=== PATIENT | female | born 1985 | race Caucasian/White ===

== ENCOUNTER 2016-12-18 12:30 | Emergency (ER) | payer OTHER ==
[2016-12-18] MEDS ORDERED: SODIUM CHLORIDE 0.9% 2,000 ML IV STA (12:32)
[2016-12-18] MEDS ORDERED: METOCLOPRAMIDE 5 MG/ML 2 ML VIAL IVP STA (12:32)
[2016-12-18] MEDS ORDERED: ACETAMINOPHEN IV (For NPO) 1,000 MG in EMPTY BAG 1 BAG IVPB STA (12:40)
--- NOTE | 2016-12-18 12:52 | ED ---
General Adult HPI - General Chief complaint: Abdominal Pain Stated complaint: Poss Flu Time Seen by Provider: 12/18/16 12:31 Source: patient, RN notes reviewed Mode of arrival: wheelchair Limitations: no limitations - History of Present Illness Initial comments: 31-year-old female patient presents to emergency department today for complaints of nausea, vomiting, and diarrhea. Symptoms started last evening around 7 PM. Patient has had some abdominal cramping with this. Patient is 22 weeks . She was seen and evaluated on the labor and delivery unit prior to coming here and was cleared from an OB standpoint. Patient denies any hematemesis, dark, bloody, or black stools. Patient denies any dysuria. Denies any chest pain, shortness of breath, dizziness, or weakness. She denies any vaginal bleeding or discharge. Patient is . - Related Data Home Medications Medication Instructions Recorded Confirmed Cholecalciferol [Vitamin D3] 2,000 unit PO DAILY 12/18/16 12/18/16 Pnv with Ca,No.72/Iron/FA 1 tab PO DAILY 12/18/16 12/18/16 [ Plus Tablet] Previous Rx's Medication Instructions Recorded Metoclopramide [Reglan] 10 mg PO TID PRN #7 tab 12/18/16 Allergies Allergy/AdvReac Type Severity Reaction Status Date / Time No Known Allergies Allergy Verified 12/18/16 13:58 Review of Systems ROS Statement: Those systems with pertinent positive or pertinent negative responses have been documented in the HPI. ROS Other: All systems not noted in ROS Statement are negative. Past Medical History Past Medical History: No Reported History History of Any Multi-Drug Resistant Organisms: None Reported Past Surgical History: Appendectomy, Cholecystectomy, Tonsillectomy Past Psychological History: No Psychological Hx Reported Smoking Status: Never smoker Past Alcohol Use History: None Reported Past Drug Use History: None Reported General Exam Limitations: no limitations General appearance: alert, in no apparent distress Head exam: Present: atraumatic, normocephalic Eye exam: Present: normal appearance, PERRL ENT exam: Present: normal exam, normal oropharynx, mucous membranes dry, other ( Lips dry). Absent: mucous membranes moist Neck exam: Present: normal inspection, full ROM. Absent: tenderness, meningismus, lymphadenopathy Respiratory exam: Present: normal lung sounds bilaterally. Absent: respiratory distress, wheezes, rales, rhonchi, stridor Cardiovascular Exam: Present: regular rate, normal rhythm, normal heart sounds. Absent: irregular rhythm, systolic murmur, diastolic murmur, rubs, gallop, clicks GI/Abdominal exam: Present: soft, tenderness (Generalized, mild). Absent: distended Back exam: Present: normal inspection. Absent: CVA tenderness (R), CVA tenderness (L) Neurological exam: Present: alert, oriented X3 Psychiatric exam: Present: normal affect Skin exam: Present: warm, dry, intact Course Vital Signs 12/18/16 12/18/16 12:28 13:39 Temperature 98.7 F 99.8 F H Pulse Rate 100 Respiratory 20 Rate Blood Pressure 90/55 O2 Sat by Pulse 100 Oximetry Medical Decision Making - Medical Decision Making 31-year-old presented for nausea vomiting diarrhea started last night. Patient states she does feel improved at this time. Patient lab work within normals. Patient was evaluated by labor and delivery is no abnormality's with at this time. Patient be discharged with close follow-up return parameters discussed. - Lab Data Result diagrams: 12/18/16 13:30 12/18/16 13:30 Lab Results 12/18/16 12/18/16 12/18/16 Range/Units 13:30 13:30 13:30 WBC 8.3 (3.8-10.6) k/uL RBC 3.81 (3.80-5.40) m/uL Hgb 12.2 (11.4-16.0) gm/dL Hct 35.6 (34.0-46.0) % MCV 93.5 (80.0-100.0) fL MCH 32.1 (25.0-35.0) pg MCHC 34.4 (31.0-37.0) g/dL RDW 13.6 (11.5-15.5) % Plt Count 205 (150-450) k/uL Neutrophils % 92 % Lymphocytes % 4 % Monocytes % 3 % Eosinophils % 0 % Basophils % 0 % Neutrophils # 7.7 (1.3-7.7) k/uL Lymphocytes # 0.3 L (1.0-4.8) k/uL Monocytes # 0.3 (0-1.0) k/uL Eosinophils # 0.0 (0-0.7) k/uL Basophils # 0.0 (0-0.2) k/uL Sodium 137 (137-145) mmol/L Potassium 3.8 (3.5-5.1) mmol/L Chloride 104 (98-107) mmol/L Carbon Dioxide 20 L (22-30) mmol/L Anion Gap 13 mmol/L BUN 14 (7-17) mg/dL Creatinine 0.57 (0.52-1.04) mg/dL Est GFR (MDRD) Af Amer >60 (>60 ml/min/1.73 sqM) Est GFR (MDRD) Non-Af >60 (>60 ml/min/1.73 sqM) Glucose 94 (74-99) mg/dL Calcium 9.0 (8.4-10.2) mg/dL Total Bilirubin 0.9 (0.2-1.3) mg/dL AST 19 (14-36) U/L ALT 15 (9-52) U/L Alkaline Phosphatase 47 (38-126) U/L Total Protein 7.1 (6.3-8.2) g/dL Albumin 4.0 (3.5-5.0) g/dL Amylase 77 (30-110) U/L Lipase 78 (23-300) U/L Urine Color Yellow Urine Appearance Cloudy H (Clear) Urine pH 6.0 (5.0-8.0) Ur Specific [place] 1.028 (1.001-1.035) Urine Protein 1+ H (Negative) Urine Glucose (UA) Negative (Negative) Urine Blood Negative (Negative) Urine Nitrate Negative (Negative) Urine Bilirubin Negative (Negative) Urine Urobilinogen <2.0 (<2.0) mg/dL Ur Leukocyte Esterase Negative (Negative) Urine WBC 1 (0-5) /hpf Ur Squamous Epith Cells 9 H (0-4) /hpf Urine Mucus Occasional H (None) /hpf Disposition Clinical Impression: Gastroenteritis, Disposition: HOME SELF-CARE Condition: Stable Instructions: Gastroenteritis (ED) Additional Instructions: Please return to the Emergency Department if symptoms worsen or any other concerns. Prescriptions: Metoclopramide [Reglan] 10 mg PO TID PRN #7 tab PRN Reason: GERD Time of Disposition: 14:11
[2016-12-18 13:49] LABS: Appearance,Urine Cloudy (Clear); Bilirubin,Urine Negative (Negative); Glucose,Urine (UA) Negative (Negative); Ketones,Urine 2+ (Negative); Leukocyte Esterase,Urine Negative (Negative); Mucus,Urine Occasional /hpf; Nitrite,Urine Negative (Negative); Particle Count 8316; Protein,Urine 1+ (Negative); Specific Gravity,Urine 1.028 (1.001-1.035); Squamous Epithelial Cell,Urine 9 /hpf (0-4); UA Billing (MACRO vs. MICRO) MICRO; Urobilinogen,Urine <2.0 mg/dL (<2.0); WBC,Urine 1 /hpf (0-5)
[2016-12-18 13:50] LABS: Basophils % (A) 0 %; CH 32.3; CHCM 34.7; Eosinophils % (A) 0 %; HCT 35.6 % (34.0-46.0); HDW 2.41; HGB 12.2 gm/dL (11.4-16.0); Luc # (Auto) 0.06; Luc % (Auto) 1; Lymphocytes # (A) 0.3 k/uL (1.0-4.8); Lymphocytes % (A) 4 %; MCH 32.1 pg (25.0-35.0); MCHC 34.4 g/dL (31.0-37.0); MCV 93.5 fL (80.0-100.0); Mean Platelet Volume 7.8; Monocytes # (A) 0.3 k/uL (0-1.0); Monocytes % (A) 3 %; Neutrophils # (A) 7.7 k/uL (1.3-7.7); Neutrophils % (A) 92 %; RBC 3.81 m/uL (3.80-5.40); RDW 13.6 % (11.5-15.5); WBC 8.3 k/uL (3.8-10.6); WBC (Perox) 8.58
[2016-12-18 13:56] LABS: ALT 15 U/L (9-52); AST 19 U/L (14-36); Alkaline Phosphatase 47 U/L (38-126); Amylase 77 U/L (30-110); Anion Gap 13 mmol/L; Blood Urea Nitrogen 14 mg/dL (7-17); Carbon Dioxide 20 mmol/L (22-30); Chloride 104 mmol/L (98-107); Glucose 94 mg/dL (74-99); Non-African American GFR(MDRD) >60 (>60 ml/min/1.73 sqM); Potassium 3.8 mmol/L (3.5-5.1); Sodium 137 mmol/L (137-145); Total Bilirubin 0.9 mg/dL (0.2-1.3); Total Protein 7.1 g/dL (6.3-8.2)
[2016-12-18 14:47] VITALS: BP 113/64; PULSE 104; RESP 18; TEMP 97.3
== END 2016-12-18 14:55 | disposition home or self-care (01) ==
LOC: EC 12:30
DX: K52.9 Noninfective gastroenteritis and colitis, unspecified (principal); O26.892 Other specified pregnancy related conditions, second trimester; Z3A.22 22 weeks gestation of pregnancy
CPT/HCPCS: 96374; 96361; 99284; 36415; 80053; 82150; 83690; 85025; 81001; J2765; J0131; 99213

== ENCOUNTER → 2023-11-20 | Outpatient (CLI) | payer OTHER ==
--- NOTE | 2023-11-20 13:57 | US ---
EXAMINATION TYPE: US abdomen limited DATE OF EXAM: 11/20/2023 COMPARISON: NONE CLINICAL INDICATION: Female, 38 years old with history of K80.45 CALCULUS OF BILE DUCT W CHRONIC CHOL ECYSTIT; RUQ pain and nausea and vomiting that comes and goes since [place]. Patient has history of a cholecystectomy 9 years ago and an appendectomy. TECHNIQUE: Multiple sonographic images of the right upper quadrant are obtained. 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 No biliary ductal dilatation or other specific abnormality seen while sc anning the right upper quadrant.
== END | disposition home or self-care (01) ==
LOC: RADUSWWP 07:54
PROVIDERS: ATTEND Family Medicine
DX: K80.45 Calculus of bile duct with chronic cholecystitis with obstruction (principal); Z90.49 Acquired absence of other specified parts of digestive tract
CPT/HCPCS: 76705

== ENCOUNTER → 2024-10-05 | Outpatient (CLI) | payer OTHER ==
--- NOTE | 2024-10-05 15:17 | MM ---
Reason for Exam: Screening (asymptomatic). Patient History: Menarche at age 16. First Full-Term at age 23. Premenopausal. Currently using Hormonal Contraceptives, starting at age 15. Mother had breast cancer, age 47. Risk Values: Ladi 5 year model risk: 1.0%. NCI Lifetime model risk: 16.9%. Tissue Density: The breasts are heterogeneously dense, which may obscure small masses. Findings: Analyzed By CAD. There is no suspicious group of microcalcifications or new suspicious mass in either breast. Implants are intact. Overall Assessment: Benign, BI-RAD 2 Management: Screening Mammogram of both breasts in 1 year. . Patient should continue monthly self-breast exams. A clinical breast exam by your physician is recommended on an annual basis. This exam should not preclude additional follow-up of suspicious palpable abnormalities. Note on Ladi scores and lifetime risk: 1. A Ladi score greater than 3% is considered moderate risk. If this is the case, consider specialist referral to assess eligibility for a risk reducing agent. 2. If overall lifetime risk for the development of breast cancer is 20% or higher, the patient may qualify for future screening with alternating mammogram and breast MRI. [facility], , 10/05/2024 3:14 PM. Electronically signed and approved by: Eugenio Oliver M.D. [facility]
== END | disposition home or self-care (01) ==
LOC: RADMAMWWP 08:35
PROVIDERS: ATTEND Obstetrics & Gynecology
DX: Z12.31 Encounter for screening mammogram for malignant neoplasm of breast (principal); R92.333 Mammographic heterogeneous density, bilateral breasts
CPT/HCPCS: 77067